=== PATIENT | female | born 1985 | race Caucasian/White ===

== ENCOUNTER 2020-01-27 08:12 | Outpatient (RCR) | payer OTHER, SELFPAY ==
[2020-01-14 15:41] VITALS: BP 98/65; PULSE 88
[2020-01-21 14:25] VITALS: BP 97/63; PULSE 95
--- NOTE | ~2020-01-27 | US_ITS ---
EXAMINATION: US OB BPP wo non-stress DATE: 01/14/2020 15:40 CDT INDICATION: Gestational diabetes. TECHNIQUE: Real-time transabdominal obstetric ultrasound. FINDINGS: No prior studies for comparison. There is a single living fetus in vertex presentation. The placenta is anterior/fundal without place nta previa. cardiac activity and movement is noted with a heart rate of 142 beats per minute. Biophysical profile: breathin of 2 movement: 2 of 2 tone: 2 of 2 Amniotic flud pocket: 2 of 2 Total score: 8 of 8 IMPRESSION: 1. Single living intrauterine in vertex presentation. 2: Total biophysical profile score of 8/8. Reviewed, dictated and finalized at location A.
--- NOTE | ~2020-01-27 | US_ITS ---
EXAMINATION: US OB BPP wo non-stress DATE: 01/27/2020 09:39 INDICATION: Gestational diabetes. Third trimester. TECHNIQUE: Real-time pelvic ultrasound was performed. COMPARISON: Ultrasound 01/21/2020 FINDINGS: There is a single living fetus in vertex presentation. The placenta is anterior. heart rate is 134 beats per minute (bpm). Biophysical profile performed by the technologist: breathing (30 sec sustained breathing in 30 minutes): 2 out of 2 movement (3 gross body movements in 30 minutes): 2 out of 2 tone (one episode of oopnlov-ghqixkleu-gkoyshw limb movement): 2 out of 2 Amniotic fluid pocket (2 cm): 2 out of 2 Total score: 8 out of 8 IMPRESSION: 1. Single living fetus in vertex presentation. 2. Biophysical profile 8 out of 8. Reviewed, dictated and finalized at location B. E OPERATOR
--- NOTE | ~2020-01-27 | US_ITS ---
EXAMINATION: US OB BPP wo non-stress DATE: 01/06/2020 14:05 CDT INDICATION: Gestational diabetes TECHNIQUE: Real-time transabdominal obstetric ultrasound. FINDINGS: No prior studies for comparison. There is a single living fetus in vertex presentation. The placenta is anterior/fundal without place nta previa. cardiac activity and movement is noted with a heart rate of 134 beats per minute. Biophysical profile: breathin of 2 movement: 2 of 2 tone: 2 of 2 Amniotic flud pocket: 2 of 2 Total score: 8 of 8 IMPRESSION: 1. Single living intrauterine in vertex presentation. 2: Total biophysical profile score of 8/8. Reviewed, dictated and finalized at location B.
--- NOTE | ~2020-01-27 | US_ITS ---
EXAMINATION: US OB BPP wo non-stress DATE: 01/21/2020 14:21 INDICATION: Gestational diabetes, third trimester TECHNIQUE: Real-time pelvic ultrasound was performed. The interpreting radiologist was not present fo r the study. COMPARISON: 01/14/2020 FINDINGS: There is a single living fetus in vertex presentation. The placenta is anterior/fundal. heart r ate is 131 beats per minute (bpm). Biophysical profile performed by the technologist: breathing (30 sec sustained breathing in 30 minutes): 2 out of 2 movement (3 gross body movements in 30 minutes): 2 out of 2 tone (one episode of ahoyydd-jyeumbkbd-iluudts limb movement): 2 out of 2 Amniotic fluid pocket (2 cm): 2 out of 2 Total score: 8 out of 8 IMPRESSION: 1. Single living fetus in vertex presentation. 2. Biophysical profile 8 out of 8. Reviewed, dictated and finalized at location A. INGS DAM PUMPER
[2020-01-27 08:43] VITALS: BP 95/65; PULSE 102
== END 2020-02-07 07:30 | disposition home or self-care (01) ==
LOC: ANHOBOP 08:12
PROVIDERS: Visit Provider Obstetrics & Gynecology
DX: O24.419 Gestational diabetes mellitus in pregnancy, unspecified control (principal); Z3A.34 34 weeks gestation of pregnancy; Z3A.36 36 weeks gestation of pregnancy; Z3A.37 37 weeks gestation of pregnancy
CPT/HCPCS: 59025; 76819

== ENCOUNTER 2020-02-05 22:01 | Inpatient (IN) | payer OTHER, SELFPAY ==
--- NOTE | 2020-02-05 23:44 | PM.IMHP ---
H&P: HPI History of Present Illness Date/Time: 02/05/20 23:44 Chief complaint: CTX Narrative: Kimberli Carias is a 34 yo @ 39.1wks admitted to L&D in active labor; found to be 4cm, made change to 6cm. Good movement. No bleeding or LOF. She has regular care. Her is complicated by: - A1GDM; diet controlled - Rubella non-immune Review of Systems Constitutional: Constitutional: Denies fever(s) and Denies headache(s) Eyes: Eyes: Denies blurry vision Cardiovascular: Cardiovascular: Denies chest pain and Denies rapid heart rate Respiratory: Respiratory: Denies cough and Denies dyspnea Gastrointestinal: Gastrointestinal: Reports abdominal pain, Denies nausea and Denies vomiting Genitourinary: Genitourinary: Denies vaginal discharge Neurologic: Denies headache(s) Psychiatric: Psychiatric: Denies anxiety and Denies depression Meds Home Medications and Allergies Allergies Allergy/AdvReac Type Severity Reaction Status Date / Time No Known Allergies Allergy Verified 11/12/12 16:50 Exam Const: General: cooperative, healthy appearing, comfortable and no acute distress Resp: Effort & Inspection: normal respiratory effort and able to speak in complete sentences Cardio: Rate: regular rate : Other: FHT's: 120's/ mod anjali/ + accels/ no decels - cat 1 TOCO: ctx's q2-3 min Membranes: AROM, clear 2340 Presentation: cephalic Skin: General skin exam: normal color Neuro: General: patient oriented x3 Psych: Appearance: grossly normal Affect: normal affect Attitude: cooperative Assessment and Plan Assessment and plan (1) Active labor at term: Status: Acute Additional Plan - Admit to L&D for active labor - AROM performed; clear fluid noted - Continuous monitoring; currently category 1 - Adequate contractions noted - Anesthesia PRN pain - GBS negative - Labs/US reviewed
--- NOTE | 2020-02-05 23:52 | WPDHPUPDATE1 ---
History and Physical Update Update Date/Time: 02/05/20 23:52 History and Physical has been reviewed, including an updated exam of the patient. There are NO changes in the patient's condition. Risks, benefits, and alternatives have been discussed and questions answered. Patient agrees to proceed with procedure.
[2020-02-06] VITALS (16 sets, daily range): BP systolic 77–131; BP diastolic 32–100; PULSE 72–169; RESP 16–18; TEMP 36.6–36.9; O2SAT 98–99
[2020-02-06 00:20] LABS: Basophils Absolute Auto 0.1 K/mm3 (0.0-0.1); Basophils Percent Auto 0.4 % (0.2-1.2); Eosinophils Absolute Auto 0.1 K/mm3 (0-0.3); Eosinophils Percent Auto 0.9 % (0-4.4); Hematocrit 36.7 % (37.0-47.0); Hemoglobin 12.8 g/dL (12.0-15.0); Immature Granulocyte Absolute 0.06 K/mm3 (0.00-0.031); Immature Granulocyte Percent A 0.5 % (0-0.5); Mean Corpuscular HGB Conc 34.9 g/dl (32-36); Mean Corpuscular Hemoglobin 32.5 pg (26-34); Mean Corpuscular Volume 93.1 fl (80-100); Mean Platelet Volume 9.4 fl (7.4-10.4); Monocytes Absolute Auto 0.9 K/mm3 (0.1-0.6); Monocytes Percent Auto 6.9 % (2.6-8.5); Neutrophils Absolute Auto 9.4 K/mm3 (1.3-6.7); Neutrophils Percent Auto 70.3 % (45.5-73.1); Platelet Count Result 281 k/mm3 (150-375); Red Blood Count 3.94 M/mm3 (4.2-5.4); Red Cell Distribution Width 12.1 % (11.5-14.5); White Blood Count 13.3 K/mm3 (4.5-10.0)
[2020-02-06] MEDS: LACTATED RINGERS 1,000 ML 125 ML IV CONT (00:34)
[2020-02-06] MEDS: OXYTOCIN 30 UNITS/NS 500 ML 30 UNITS/500 ML BAG 999 UNITS IV CONT (00:47)
--- NOTE | 2020-02-06 00:56 | PM.OBPRVD ---
OB - Delivery Note Procedure Delivery date: 02/06/20 Procedure: Patient rapidly progressed to complete dilation with strong desire to push. With good maternal effort, she delivered the head over intact perineum. A nuchal cord x2 was noted, however it was loose and delivered through. The shoulders and body delivered without complications. The had spontaneous cry and was immediately placed skin to skin. The umbilical cord was then clamped and cut. A segment of the cord was collected for cord gases and the remaining cord blood was collected for typing. With Pitocin running and gentle downward traction on the umbilical cord, the placenta delivered without complications. Good uterine tone and minimal bleeding were noted. The vagina and perineum were examined and no lacerations were noted. Sponge, lap, needle, instrument counts were correct at the end the procedure. Mom and baby were left bonding in the birthing suite in a stable condition. events: Gestational Diabetes Intrapartal events: Precipitous Labor < 3 hours Induction method: none Delivery augmentation: rupture of membranes Delivery monitor: external FHT and external uterine Route of delivery: Laceration Description: None Estimated blood loss (mL): 100 Anesthesia type: None Disposition: floor [place] Baby Date of : 02/06/20 Time of : 00:43 Weeks of gestation at delivery: 39 Infant gender: Female Weight (pounds): 5 Weight (ounces): 12 presentation: vertex position: Left Occiput Anterior cord vessel description: Nuchal Cord (x2) and Loose score one minute: 9 score five minutes: 9
[2020-02-06] MEDS: OXYTOCIN 30 UNITS/NS 500 ML 30 UNITS/500 ML BAG 125 UNITS IV CONT (01:21)
--- NOTE | 2020-02-06 02:03 | LDADM ---
This patient, Kimberli Carias, was admitted to Labor/Delivery/Recovery 105 on 02/05/20 at 22:01. Plans for labor, pain management and were discussed with patient. Patient/family oriented to hospital policies and general routines including ID bracelet, bed and alarms, visiting hours, pain management, procedures, bathroom and other care routines, personal items, smoking policy, room service/diet and guest tray routines, infant security routines, and visiting hours. Patient/Family are encouraged to report perceived risks to care and to ask questions if they do not understand what they are told or what they should do. See OBIX for further documentation.
[2020-02-06] MEDS: IBUPROFEN 600 MG TABLET PO ×3 (02:28→17:15)
--- NOTE | 2020-02-06 03:31 | PC.NURSE ---
This patient, Kimberli Carias, was received from Labor and Delivery on 02/06/20 at 0331. Patient/family oriented to unit policies and routines
--- NOTE | 2020-02-06 07:30 | PC.NURSE ---
PT introductions made and plan of care discussed per post , pain management, breast pumping, bottle feeding, daily care activities. PT verbalized understanding of such care.
[2020-02-06] MEDS: DOCUSATE SODIUM 100 MG CAPSULE PO ×2 (10:39→17:15)
[2020-02-06] MEDS: MULTIVIT/MIN/PREN/FOL AC/IRON TABLET 1 TAB PO (10:39)
[2020-02-06] MEDS: POLYSACCHARIDE IRON COMPLEX 150 MG CAPSULE PO ×2 (10:40→17:17)
[2020-02-06] MEDS: ACETAMINOPHEN 325 MG TABLET 650 MG PO ×2 (10:41→17:15)
[2020-02-06] MEDS: TETANUS,DIPHTHERIA,AC PERTUSSIS ADULT (0.5 ML) BOOSTRIX IM (10:42)
[2020-02-06] MEDS: LANOLIN (LANSINOH) 7.5 GM CREAM 1 APPLIC TOPICAL (10:47)
--- NOTE | 2020-02-06 14:43 | P.PNOB_ITS ---
OB - PN: Subj Subjective Date/time seen: 02/06/20 14:43 PPD#0 Kimberli reports doing great this afternoon. She reports her pain is well controlled w/o pain meds. She reports her bleeding is light. She has tolerated regular diet. She has voided and passed flatus. She has ambulated w/o issue. She is breast/bottle feeding. She denies any N/V, fever, chills, CP, SOB, BHANDARI, palpitations or dizziness. She would like to be discharged home tomorrow morning. OB - PN: Obj Data Labs CBC & Chem 7: 02/05/20 23:49 Labs: Laboratory Results - last 24 hr 02/05/20 23:49 WBC 13.3 H RBC 3.94 L Hgb 12.8 Hct 36.7 L MCV 93.1 MCH 32.5 MCHC 34.9 RDW 12.1 Plt Count 281 MPV 9.4 Immature Gran % (Auto) 0.5 Neut % (Auto) 70.3 Lymph % (Auto) 21.0 Cavalier % (Auto) 6.9 Eos % (Auto) 0.9 Baso % (Auto) 0.4 Lymph # (Auto) 2.80 Cavalier # (Auto) 0.9 H Eos # (Auto) 0.1 Baso # (Auto) 0.1 Abs Immat Gran (auto) 0.06 H Absolute Neuts (auto) 9.4 H Absolute Nucleated RBC 0.0 Nucleated RBC % 0.0 OB - PN A/P Assessment and Plan (1) Normal vaginal delivery of third : Code(s): O80 - Encounter for full-term uncomplicated delivery Status: Acute (2) Gestational diabetes: Qualifiers: Gestational diabetes mellitus control: diet-controlled Trimester: third trimester Qualified Code(s): O24.410 - Gestational diabetes mellitus in , diet controlled Code(s): O24.419 - Gestational diabetes mellitus in , unspecified control Status: Acute Plan day: 0 Plan: routine care and discharge home (tomorrow) Comments: - Pt meeting all milestones - Discharge home tomorrow pending normal H/H - F/u in clinic in 4 wks - L&D return precautions discussed: N/V/Abd pain, fever, bleeding, HTN Time Spent With Patient Time: Total time spent is greater than 50% in coordination of care (as documented) at patient's floor/unit and/or counseling patient: Review of Systems Review of Systems: All systems reviewed & are unremarkable except as noted in HPI and below (HPI) Exam Const: General: cooperative, healthy appearing, comfortable and no acute distress Nutritional Appearance: average body habitus Resp: Effort & Inspection: normal respiratory effort and able to speak in complete sentences Cardio: Rate: regular rate GI: Inspection: normal to inspection and non-distended GI Palp: No abdominal tenderness and Yes Soft to palpation : Other: fundus firm below umbilicus, normal lochia Skin: General skin exam: normal color Neuro: General: patient oriented x3 Extrem: General: normal to inspection Psych: Appearance: grossly normal Affect: normal affect Attitude: cooperative
[2020-02-06 17:29] LABS: Hematocrit 35.8 % (37.0-47.0); Hemoglobin 12.4 g/dL (12.0-15.0)
[2020-02-07 07:02] LABS: Rapid Plasma Reagin Non-Reactive (NonReactive)
[2020-02-07] MEDS: MULTIVIT/MIN/PREN/FOL AC/IRON TABLET 1 TAB PO (07:33)
[2020-02-07] MEDS: IBUPROFEN 600 MG TABLET PO (07:34)
[2020-02-07] MEDS: DOCUSATE SODIUM 100 MG CAPSULE PO (07:34)
[2020-02-07 08:00] VITALS: BP 100/56; PULSE 75; RESP 18; TEMP 36.6
--- NOTE | 2020-02-07 08:00 | PC.NURSE ---
Consult with pt., mother states she is pumping and bottle feeding EBM/formula. Reviewed Instructions on breast pump care and usage, pumping schedule, nipple care, and collection and storage of breast milk. Encouraged jjmr-zy-wagg, breast massage and manual expression to stimulate supply. Pumping log provided and reviewed. Assessed patient for correct flange size, placement and draw. Patient verbalizes and demonstrates understanding of instructions. Mother is feeding as required and waking to feed if needed. is currently meeting outcomes for weight, output, jaundice and feeding frequencies. Mother states she feels confident to continue current feeding plan at home. Reviewed transition to breast milk, signs of adequate intake, and engorgement/relief. Instructed to call ICP if intake/output less than required. Reviewed regular medications mother is taking. Information provided per Inés. Reviewed community resources on the [facility] website and in the Mom/Baby guide. Information on outpatient services provided. Mother has no further questions at this time.
--- NOTE | 2020-02-07 12:33 | PM.OBDSVD ---
DS: Admitting Diagnosis Admitting Diagnosis Admitting Diagnosis: CTX DS: Discharge Diagnosis Discharge Diagnosis (1) Gestational diabetes: Qualifiers: Gestational diabetes mellitus control: diet-controlled Trimester: third trimester Qualified Code(s): O24.410 - Gestational diabetes mellitus in , diet controlled Code(s): O24.419 - Gestational diabetes mellitus in , unspecified control Status: Acute (2) Normal vaginal delivery of third : Code(s): O80 - Encounter for full-term uncomplicated delivery Status: Acute OB - DS: Summary OB Procedures : Ultrasound and Other (A1GDM management) OB Procedures Intrapartum: Spontaneous Vag Delivery OB Procedures: : None Peripartum Data Infant Delivery Method: Natural Vaginal Laceration Description: None complications: none Grahn 1: Gender: Female Disposition of : home Status at Discharge Functional status at discharge: independent ambulation Overall status at discharge: patient is back to baseline Time Spent with Patient Time attestation: Total time spent providing and/or coordinating discharge services: Time spent: Less than 30 minutes Exam Const: General: cooperative, healthy appearing, comfortable and no acute distress Resp: Effort & Inspection: normal respiratory effort and able to speak in complete sentences Cardio: Rate: regular rate GI: Inspection: normal to inspection GI Palp: Yes Soft to palpation and No Tenderness to palpation present (GI) : Other: fundus firm below umbilicus Skin: General skin exam: normal color Neuro: General: patient oriented x3 Psych: Appearance: grossly normal Affect: normal affect Attitude: cooperative DS: Data Data Completed and Pending Pending studies at discharge: Pending at discharge 02/06/20 00:48 Surgical [PTH] Routine Labs on day of discharge: Labs from last 24 hours 02/06/20 02/05/20 02/05/20 17:25 23:49 17:25 Hgb 12.4 Hct 35.8 L RPR Non-reactive Blood Type A Positive Antibody Screen Negative Discharge Plan Discharge Attending physician on discharge: Megan Julien Discharging Clinician: Megan Julien Anticipated Discharge Date/Time: 02/07/20 08:00 Patient Disposition: Home, Self-Care Activity: pelvic rest Diet: regular Discharge Instructions: Education: Mom and Baby Guide Given to: Mother Follow-Up: Call your delivering provider's office for an appointment to be seen in: 6 Weeks Mom and baby should come to the [facility] for the follow-up appointment. Appointment Date/Time: February 09, 2020 at 10:00 am What to expect at your follow-up visit: Blood Pressure Check Physical Assessment Call [phone] if you are unable to keep your appointment time. BREAST CARE: * Wear a snug supportive bra. * For engorgement discomfort: Breast Feeding: * Apply warm moist washcloths * Express milk as needed to relieve engorgement * Wear loose clothing Bottle Feeding: * May apply ice packs * For sore nipples: * Identify correct latch-on * Apply warm moist washcloths before and after nursing * Air dry nipples after nursing * May apply Lansinoh cream to nipples EPISIOTOMY/PERINEAL CARE: * Until bleeding stops, use your eleanor bottle after urinating * Change your pad frequently throughout the day * You may take sitz baths several times a day (fill your bathtub with warm water and soak for 20 minutes.) Do NOT bathe in the water * No tub baths until seen by your physician - You may shower ACTIVITY: * Rest as much as possible. * Do not exercise or lift anything heavier than your baby (such as laundry or other children.) * Avoid stairs or driving as much as possible. * Do not put anything into the vagina. No douching, tampons, or sexual
[2020-02-09 10:22] VITALS: BP 104/70; PULSE 77; RESP 16; TEMP 36.8; O2SAT 97
== END 2020-02-07 11:35 | disposition home or self-care (01) | DRG 807 ==
LOC: ANHLDR 23:37 → ANHOB2 02-06 03:36
PROVIDERS: Admitting Provider Obstetrics & Gynecology; Visit Provider Obstetrics & Gynecology
DX: O62.3 Precipitate labor (principal); Z37.0 Single live birth; Z3A.39 39 weeks gestation of pregnancy; O24.420 Gestational diabetes mellitus in childbirth, diet controlled; O69.81X0 Labor and delivery complicated by cord around neck, without compression, not applicable or unspecified; O77.0 Labor and delivery complicated by meconium in amniotic fluid
CPT/HCPCS: 36415; 85014; 85018; 85025; 86592; 86850; 86900; 86901; 88307; 90715; A9270; J2590; J7120